=== PATIENT | male | born 1960 | race Caucasian/White ===

== ENCOUNTER 2018-08-17 19:52 | Inpatient (IN) | payer OTHER ==
[~2018-08-17] VITALS: Ht 172.7 cm; Wt 68.0 kg
[2018-08-17 19:54] VITALS: BP 132/87
--- NOTE | 2018-08-17 19:55 | NUR ---
58 YO M LUI FROM HOME D/T ABD PAIN. PT REPORTS 8/10 SHARP, PRESSURE-LIKE BILATERAL LOWER ABD PAIN X SINCE LAST NIGHT. PT HAS COLOSTOMY BAG TO RIGHT LOWER QUADRANT AND REPORTS THAT HE HASN'T HAD A FULL BOWEL MOVEMENT IN 2 DAYS. PT ADMITS TO OCCASIONALLY SMOKING METH AND REPORTS LAST USE WAS 4-5 DAYS AGO. SMOKES CIGARETTES. DENIES OTHER REC DRUG USE. -- COLOSTOMY BAG APPEARS TO HAVE SMALL AMOUNT OF BROWN LIQUID STOOL. ABD IS FIRM AND MILD DISTENTION NOTED TO LRQ. BOWEL SOUNDS ACTIVE TO LLQ, ULQ, HYPOACTIVE TO LRQ. -- PT ALSO HAS UROSTOMY BAG. DENIES ANY ISSUES WITH URINIATION. -- PT APPEARS UNCOMFORTABLE, IN PAIN. IS COOPERATIVE, ANSWERS QUESTIONS APPROPRIATELY, BEHAVIOR AGE APPROPRIATE. -- PT HAS POOR HYGIENE AND APPEARS DISHEVELED. -- SKIN PINK, WARM, DRY. BREATHING EVEN, UNLABORED. 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 WAS NOT EFFECTIVE. NO STOOL REPORTED.
[2018-08-17 20:30] LABS: BASOPHILS % (AUTO) 0.1 % (0.0-2.0); EOSINOPHILS % (AUTO) 0.4 % (0.0-4.0); HEMATOCRIT 40.5 % (36-52); HEMOGLOBIN 13.7 g/dL (12.0-18.0); LYMPHOCYTES # (AUTO) 0.6 K/uL (2.0-11.5); LYMPHOCYTES % (AUTO) 7.4 % (20.5-51.1); MEAN CORPUSCULAR HEMOGLOBIN 29 pg (27-31); MEAN CORPUSCULAR HGB CONC 34 g/dL (33-37); MEAN CORPUSCULAR VOLUME 84.9 fL (80-94); MONOCYTES # (AUTO) 0.6 K/uL (0.8-1.0); MONOCYTES % (AUTO) 7.3 % (1.7-9.3); NEUTROPHILS # (AUTO) 6.8 K/uL (1.8-7.7); NEUTROPHILS % (AUTO) 84.8 % (42.2-75.2); PLATELET COUNT (AUTO) 186 K/uL (140-450); RED BLOOD CELL COUNT(AUTO) 4.77 MIL/uL (4.20-6.10); RED CELL DISTRIBUTION WIDTH 14.7 % (11.6-13.7)
[2018-08-17 20:38] LABS: ANION GAP 10.5 (8-16); CARBON DIOXIDE 27.4 mmol/L (21-32); CREATININE 0.8 mg/dL (0.7-1.3); POTASSIUM 3.9 mmol/L (3.5-5.1)
[2018-08-17 20:44] LABS: ALBUMIN 3.4 g/dL (3.4-5.0); TOTAL BILIRUBIN 0.7 mg/dL (0.0-1.0)
--- NOTE | 2018-08-17 20:44 | NUR ---
PT TAKEN TO CT AT THIS TIME
--- NOTE | 2018-08-17 21:50 | NUR ---
CT REPORT: Findings- Right lower quadrant ostomy with sub-ostomy 10 x 4 cm hernia of large bowel. Approximately 6.0 cm AP diameter x 5.5 cm transverse rim-enhancing fluid collection surrounding by calcifications as well as surgical clips in the lower midline pelvis, which could represent postsurgical abscess. Clinical correlation is needed as to the type of surgery that was done in the pelvis. No bowel obstruction. Moderate to severe left hydroureteronephrosis due to obstruction at level of the pelvis possibly at the level of pelvic abscess. There appears to be a cystectomy. No right hydronephrosis or right renal calculus. Distended gallbladder containing couple 1 cm calcified gallstones in gallbladder neck region. Liver is unremarkable on this limited noncontrast study. No splenomegaly. Pancreas is not enlarged. No right or left adrenal mass. There is no abdominal aortic aneurysm. NOTE: Please note that evaluation of solid organs and subtle acute disease is limited without IV contrast material. Impression: 1. Right lower quadrant ostomy with sub-ostomy 10 x 4 cm hernia of large bowel. Approximately 6.0 cm AP diameter x 5.5 cm transverse rim-enhancing fluid collection surrounding by calcifications as well as surgical clips in the lower midline pelvis, which could represent postsurgical abscess. Clinical correlation is needed as to the type of surgery that was done in the pelvis. No bowel obstruction. 2. Moderate to severe left hydroureteronephrosis due to obstruction at level of the pelvis possibly at the level of pelvic abscess. There appears to be a cystectomy. 3. Distended gallbladder containing couple 1 cm calcified gallstones in gallbladder neck region.
--- NOTE | 2018-08-17 23:15 | NUR ---
DR. GALLARDO BEDSIDE EVALUATING PT
[2018-08-17] MEDS ORDERED: MORPHINE SULFATE 4 MG/ML SYR IVP ONE (23:30)
--- NOTE | 2018-08-17 23:42 | NUR ---
LAB AT BEDSIDE DRAWING BLOOD CX.
[2018-08-17] MEDS ORDERED: cefTRIAXone 1,000 MG VIAL ONE (23:44)
--- NOTE | 2018-08-17 23:45 | NUR ---
PT RECEIVED 4 MG MORPHINE IVP FOR 9/10 PAIN. WILL CONTINUE TO MONITOR.
[2018-08-17] MEDS ORDERED: ONDANSETRON 4 MG/2 ML VIAL IVP PRN (23:50)
[2018-08-17] MEDS ORDERED: HYDROcodone/APAP 5/325 MG 1 TAB TAB PO PRN (23:50)
[2018-08-17] MEDS ORDERED: ACETAMINOPHEN 325 MG TAB PO PRN (23:50)
--- NOTE | 2018-08-18 00:30 | NUR ---
PT IS SLEEPING. REPORTS 5/10 PAIN. MORPHINE EFFECTIVE.
--- NOTE | 2018-08-18 00:50 | NUR ---
RECEIVED BEDSIDE REPORT FROM ER NURSE LEAH. A/O X4. OCCITAN SPEAKING. ABLE TO MAKE NEEDS KNOWN. SKIN INTACT. COLOSTOMY IN PLACE. TENDER/DISTENDED. UROSTOMY IN PLACE. REQUESTED URINAL AT BEDSIDE TO EMPTY OUT URINE FROM UROSTOMY BAG. IV SITE PATENT AND INTACT. 22G IN LFA. BED IN LOW POSITION. CALL LIGHT WITHIN REACH. WILL CONTINUE TO MONITOR.
--- NOTE | 2018-08-18 00:56 | NUR ---
Patient will be admitted to care of Dr. Marin. Admited to MS. Will go to room 105-B. Belongings list completed. Report to LAURO Thompson.
--- NOTE | 2018-08-18 02:30 | NUR ---
PT SLEEPING IN BED. NO SIGNS OF DISTRESS OR DISCOMFORT. BED IN LOW POSITION. CALL LIGHT WITHIN REACH. WILL CONTINUE TO MONITOR.
[2018-08-18 04:00] VITALS: BP 122/69
--- NOTE | 2018-08-18 04:30 | NUR ---
ADMINISTERED ZOSYN IVPB SCHEDULED. EDUCATED ON SIDE EFFECTS. VERBALIZED UNDERSTANDING. WILL CONTINUE TO MONITOR.
[2018-08-18] MEDS ORDERED: PIPERACILLIN/TAZOBACTAM 3.375 GM VIAL IV ONE (04:38)
[2018-08-18] MEDS ORDERED: PIPERACILLIN/TAZOBACTAM 3.375 GM in DEXTROSE 5% 50 ML IV SCH (05:00)
[2018-08-18] MEDS: HYDROmorphone 1 MG/ML AMP IVP PRN ×3 (05:43→20:35)
--- NOTE | 2018-08-18 05:43 | NUR ---
ADMINISTERED PRN PAIN MED. EDUCATED ON SIDE EFFECTS. VERBALIZED UNDERSTANDING. TOLERATED WELL. WILL CONTINUE TO MONITOR.
[2018-08-18 06:43] LABS: BASOPHILS % (AUTO) 0.1 % (0.0-2.0); EOSINOPHILS % (AUTO) 0.2 % (0.0-4.0); HEMATOCRIT 40.1 % (36-52); HEMOGLOBIN 13.6 g/dL (12.0-18.0); LYMPHOCYTES # (AUTO) 0.4 K/uL (2.0-11.5); LYMPHOCYTES % (AUTO) 4.5 % (20.5-51.1); MEAN CORPUSCULAR HEMOGLOBIN 29 pg (27-31); MEAN CORPUSCULAR HGB CONC 34 g/dL (33-37); MEAN CORPUSCULAR VOLUME 84.8 fL (80-94); MONOCYTES # (AUTO) 0.7 K/uL (0.8-1.0); MONOCYTES % (AUTO) 8.1 % (1.7-9.3); NEUTROPHILS # (AUTO) 7.8 K/uL (1.8-7.7); NEUTROPHILS % (AUTO) 87.1 % (42.2-75.2); PLATELET COUNT (AUTO) 173 K/uL (140-450); RED BLOOD CELL COUNT(AUTO) 4.73 MIL/uL (4.20-6.10); RED CELL DISTRIBUTION WIDTH 14.5 % (11.6-13.7)
--- NOTE | 2018-08-18 07:20 | NUR ---
ENDORSED PT TO DAYSHIFT LAURO ANDRES. PT IN STABLE CONDITION.
--- NOTE | 2018-08-18 07:25 | NUR ---
RECEIVED HAND OFF REPORT FROM COLUMN PRECASTER NURSE PT IS ASLEEP IN BED NOTABLE CHEST RISE AND FALL PT APPEARS STABLE AND IN NO APPARENT DISTRESS. ALL SAFETY MEASURES ARE IN PLACE WILL CONTINUE TO MONITOR.
--- NOTE | 2018-08-18 09:05 | NUR ---
FREQUENT ROUNDING ON PT PT IS STABLE AND IN NO APPARENT DISTRESS. ALL SAFETY MEASURES ARE IN PLACE. WILL CONTINUE TO MONITOR.
[2018-08-18] MEDS: ENOXAPARIN 30 MG/0.3 ML SYR SUBQ SCH (10:13)
--- NOTE | 2018-08-18 11:25 | NUR ---
FREQUENT ROUNDING ON PT PT IS STABLE AND IN NO APPARENT DISTRESS, ALL SAFETY MEASURES ARE IN PLACE. WILL CONTINUE TO MONITOR.
--- NOTE | 2018-08-18 12:46 | NUR ---
PATIENT HAS BEEN SCREENED AND CATEGORIZED MODERATE NUTRITION RISK. PATIENT WILL BE SEEN WITHIN 3-5 DAYS OF ADMISSION. 08/20/18JUAN NOVA MBA, RD
[2018-08-18] MEDS ORDERED: LACTULOSE 20 GM/30 ML UDC PO PRN (12:50)
--- NOTE | 2018-08-18 13:00 | NUR ---
STARTED 18G IV IN RIGHT AC PER REQUEST OF RADIOLOGIST FOR IV CONTRAST
--- NOTE | 2018-08-18 13:35 | NUR ---
RECEIVED PO CONTRAST FOR PT AND ADMINISTERED PER INSTRUCTIONS FROM RADIOLOGIST.
[2018-08-18 13:41] LABS: PROTHROMBIN TIME 9.3 secs (10.8-13.4)
--- NOTE | 2018-08-18 13:45 | NUR ---
FREQUENT ROUNDING PT IS ASLEEP NOTABLE CHEST RISE AND FALL. PT APPEARS STABLE AND IN NO APPARENT DISTRESS. ALL SAFETY MEASURES ARE IN PLACE WILL CONTINUE TO MONITOR.
[2018-08-18] MEDS: PIPER/TAZO 3.375GM/D5W PREMIX 50 ML IV SCH ×2 (14:42→20:34)
[2018-08-18] MEDS: NICOTINE TRANSD SYS 14 MG/24 HR PATCH TD SCH (14:42)
--- NOTE | 2018-08-18 15:25 | NUR ---
FREQUENT ROUNDING PT IS AWAKE IN BED PT IS STABLE AND IN NO APPARENT DISTRESS. ALL SAFETY MEASURES ARE IN PLACE. WILL CONTINUE TO MONITOR.
--- NOTE | 2018-08-18 15:45 | NUR ---
PT FINISHED PO CONTRAST PER INSTRUCTED BY THE RADIOLOGIST.
[2018-08-18 16:05] VITALS: BP 124/66
--- NOTE | 2018-08-18 17:35 | NUR ---
FREQUENT ROUNDING ON PT PT IS STABLE AND IN NO APPARENT DISTRESS, ALL SAFETY MEASURES ARE IN PLACE. WILL CONTINUE TO MONITOR.
--- NOTE | 2018-08-18 18:45 | NUR ---
RADIOLOGY CALLED AND STATED THEY WILL COME AROUND 1900 TO TAKE PT TO CT SCAN
--- NOTE | 2018-08-18 19:35 | NUR ---
ENDORSE PT TO HUMAN RESOURCES MGR NURSE PT IS IN BED. PT IS STABLE AND IN NO APPARENT DISTRESS. ALL SAFETY MEASURES ARE IN PLACE.
--- NOTE | 2018-08-18 19:36 | NUR ---
RECEIVED REPORT FROM DAY SHIFT RNMCKENNA. PATIENT SLEEPING WITH NO SIGNS OF DISTRESS ON RA. SAFETY PRECAUTIONS IN PLACE.
--- NOTE | 2018-08-18 23:30 | NUR ---
PATIENT C/O SEVERE ABDOMINAL PAIN. MEDICATED WITH PRN DILAUDID. VITALS STABLE. SAFETY PRECAUTIONS IN PLACE. WILL CONTINUE TO MONITOR.
[2018-08-19] VITALS: BP 131/67
[2018-08-19] MEDS: HYDROmorphone 1 MG/ML AMP IVP PRN ×3 (00:47→13:31)
--- NOTE | 2018-08-19 00:50 | NUR ---
PATIENT C/O CONTINUED SEVERE ABD PAIN. MEDICATED WITH PRN DILAUDID. VITALS REMAIN STABLE ON RA. SAFETY PRECAUTIONS IN PLACE. WILL CONTINUE TO MONITOR.
--- NOTE | 2018-08-19 02:00 | NUR ---
PATIENT SLEEPING, NO SIGNS OF DISTRESS ON RA. WILL CONTINUE TO MONITOR.
[2018-08-19] MEDS: PIPER/TAZO 3.375GM/D5W PREMIX 50 ML IV SCH ×3 (05:25→21:06)
--- NOTE | 2018-08-19 05:28 | NUR ---
ADMINISTERED SCHEDULED MEDICATIONS. PATIENT TOLERATED WELL, ASLEEP BUT WAKES EASILY. NO SIGNS OF DISTRESS ON RA. SAFETY PRECAUTIONS IN PLACE
[2018-08-19 07:21] LABS: BASOPHILS % (AUTO) 0.1 % (0.0-2.0); EOSINOPHILS % (AUTO) 0.1 % (0.0-4.0); HEMATOCRIT 41.4 % (36-52); HEMOGLOBIN 14.1 g/dL (12.0-18.0); LYMPHOCYTES # (AUTO) 0.5 K/uL (2.0-11.5); MEAN CORPUSCULAR HEMOGLOBIN 29 pg (27-31); MEAN CORPUSCULAR HGB CONC 34 g/dL (33-37); MEAN CORPUSCULAR VOLUME 85.6 fL (80-94); MONOCYTES # (AUTO) 0.8 K/uL (0.8-1.0); MONOCYTES % (AUTO) 9.1 % (1.7-9.3); NEUTROPHILS # (AUTO) 7.7 K/uL (1.8-7.7); PLATELET COUNT (AUTO) 184 K/uL (140-450); RED BLOOD CELL COUNT(AUTO) 4.84 MIL/uL (4.20-6.10); RED CELL DISTRIBUTION WIDTH 14.9 % (11.6-13.7); WHITE BLOOD COUNT (AUTO) 9.1 K/uL (4.8-10.8)
--- NOTE | 2018-08-19 07:27 | NUR ---
GAVE BEDSIDE REPORT TO DAY SHIFT RNMCKENNA. PATIENT IS STABLE, SLEEPING WITH BED IN LOW POSITION, NO SIGNS OF DISTRESS ON RA.
--- NOTE | 2018-08-19 07:35 | NUR ---
RECEIVED HAND OFF REPORT AT PT BEDSIDE. PT IS ASLEEP WITH NOTABLE CHEST RISE AND FALL. PT IS STABLE AND IN NO APPARENT DISTRESS. ALL SAFETY MEASURSE
[2018-08-19 07:39] LABS: MAGNESIUM 2.3 mg/dL (1.8-2.4); PHOSPHORUS 2.8 mg/dL (2.5-4.9)
[2018-08-19 07:42] LABS: ANION GAP 12.9 (8-16); CARBON DIOXIDE 27.2 mmol/L (21-32); POTASSIUM 4.1 mmol/L (3.5-5.1)
[2018-08-19 07:43] LABS: CREATININE 1.1 mg/dL (0.7-1.3)
[2018-08-19 08:00] VITALS: BP 130/68
[2018-08-19 08:03] LABS: LYMPHOCYTES % (AUTO) 5.8 % (20.5-51.1); NEUTROPHILS % (AUTO) 84.9 % (42.2-75.2)
[2018-08-19] MEDS: ENOXAPARIN 30 MG/0.3 ML SYR SUBQ SCH (08:56)
--- NOTE | 2018-08-19 09:25 | NUR ---
FREQUENT ROUNDING PT IS AWAKE IN BED PT IS STABLE AND IN NO APPARENT DISTRESS. ALL SAFETY MEASURES ARE IN PLACE. WILL CONTINUE TO MONITOR.
--- NOTE | 2018-08-19 11:53 | NUR ---
FREQUENT ROUNDING PT IS ASLEEP IN BED NOTABLE CHEST RISE AND FALL. PT APPEARS STABLE AND IN NO APPARENT DISTRESS. ALL SAFETY MEASURES ARE IN PLACE, WILL CONTINUE TO MONITOR.
--- NOTE | 2018-08-19 13:05 | NUR ---
FREQUENT ROUNDING PT IS AWAKE IN BED PT IS STABLE AND IN NO APPARENT DISTRESS, ALL SAFETY MEASURES ARE IN PLACE WILL CONTINUE TO MONITOR.
[2018-08-19] MEDS: NICOTINE TRANSD SYS 14 MG/24 HR PATCH TD SCH (13:44)
[2018-08-19] MEDS ORDERED: HYDROcodone/APAP 10/325 MG 1 TAB TAB PO PRN (13:55)
[2018-08-19] MEDS ORDERED: HYDROmorphone PFS 2 MG/ML SYR IVP PRN (13:55)
--- NOTE | 2018-08-19 15:25 | NUR ---
FREQUENT ROUNDING PT IS AWAKE IN BED PT IS STABLE AND APPEARS IN NO APPARENT DISTRESS. ALL SAFETY MEASURES ARE IN PLACE WILL CONTINUE TO MONITOR.
[2018-08-19 16:02] VITALS: BP 129/74
--- NOTE | 2018-08-19 16:40 | NUR ---
PT STATES HIS SURGERY WAS DONE IN 2011 AT [facility] BY DR PINTO.
--- NOTE | 2018-08-19 16:45 | NUR ---
CALLED [facility] , SPOKE WITH TREATING ENGINEER FRANCIS, THEY CURRENTLY DON'T HAVE A BED AVAILABLE BUT WILL REVIEW THE CASE, WILL FAX REQUESTED INFO TO .
--- NOTE | 2018-08-19 17:08 | NUR ---
FREQUENT ROUNDING PT IS STABLE AND IN NO APPARENT DISTRESS. ALL SAFETY MEASURES ARE IN PLACE. IVF IS INFUSING IV SITE SHOWS NO SIGNS OF INFILTRATION OR INFLAMMATION. CONTAINER AT BEDSIDE PER PT REQUEST INCASE HE HAS A BOWEL MOVEMENT FROM HIS COLOSTOMY SINCE HE RECEIVED LACTULOSE.
[2018-08-19] MEDS: HYDROmorphone PFS 2 MG/ML SYR IVP PRN ×2 (17:30→21:06)
--- NOTE | 2018-08-19 19:25 | NUR ---
RECEIVED BEDSIDE REPORT FROM DAY SHIFT NURSE. PATIENT IS AWAKE, ALERT, AND COOPERATIVE. RESPIRATION EVEN UNLABORED ON ROOM AIR. SKIN IS WARM AND DRY. IV PATENT AND INTACT. COLOSTOMY BAG AND UROSTOMY NOTED. PATIENT IS AMBULATORY AND ABLE TO MAKE NEEDS KNOWN. PLAN OF CARE WAS DISCUSSED. BED IS AT LOW POSITION. CALL LIGHT WITHIN REACH AND VERBALIZES ITS USE. WILL CONTINUE TO MONITOR.
--- NOTE | 2018-08-19 19:37 | NUR ---
ENDORSED PT TO BOOKER NURSE PT IS ASLEEP IN BED NOTABLE CHEST RISE AND FALL. ALL SAFETY MEASURES ARE IN PLACE.
--- NOTE | 2018-08-19 20:00 | NUR ---
INITIAL ASSESSMENT DONE. VITALS WERE TAKEN. PATIENT COLOSTOMY BAG AND UROSTOMY INTACT AND IN PLACE. DENIES PAIN. WILL CONTINUE TO MONITOR.
--- NOTE | 2018-08-19 21:00 | NUR ---
ALL SCHEDULED MEDS GIVEN PER ORDER. NO ASE NOTED. WILL CONTINUE TO MONITOR.
--- NOTE | 2018-08-19 21:06 | NUR ---
PATIENT COMPLAINED OF ABDOMINAL PAIN 11/03. PRN PAIN MED ADMINISTERED PER ORDER. WILL CONTINUE TO MONITOR.
--- NOTE | 2018-08-19 22:30 | NUR ---
PATIENT SLEEPING RESPIRATION EVEN UNLABORED ON ROOM AIR. NO DISTRESS NOTED. WILL CONTINUE TO MONITOR.
[2018-08-20] VITALS: BP 133/86
--- NOTE | 2018-08-20 | NUR ---
VITALS WERE TAKEN. PATIENT CONDITION STABLE. NO DISTRESS NOTED. WILL CONTINUE TO MONITOR
--- NOTE | 2018-08-20 01:35 | NUR ---
PATIENT COMPLAINED OF ABDOMINAL PAIN 8. PRN PAIN MEDS ADMINISTER PER ORDER. WILL CONTINUE TO MONITOR.
[2018-08-20] MEDS: HYDROmorphone PFS 2 MG/ML SYR IVP PRN ×3 (01:37→09:47)
--- NOTE | 2018-08-20 04:00 | NUR ---
CHECKED ON PATIENT. PATIENT IS ASLEEP RESPIRATION EVEN UNLABORED ON ROOM AIR. NO DISTRESS NOTED. WILL CONTINUE TO MONITOR
[2018-08-20] MEDS: PIPER/TAZO 3.375GM/D5W PREMIX 50 ML IV SCH (05:06)
[2018-08-20] MEDS ORDERED: PIPERACILLIN/TAZOBACTAM 2.25 GM VIAL IV ONE (05:23)
--- NOTE | 2018-08-20 05:40 | NUR ---
PATIENT COMPLAINED OF ABDOMINAL PAIN 8/10 PRN PAIN MED ADMINISTER PER ORDER. WILL CONTINUE TO MONITOR
--- NOTE | 2018-08-20 07:10 | NUR ---
BEDSIDE REPORT RECEIVED FROM ABRASIVE COATING MACHINE OPERATOR NURSE, PT IS ASLEEP. NO S/S OF ANY ACUTE DISTRESS OR SOB NOTED. PT IS ON ROOM AIR, SKIN INTACT ASIDE FROM THE COLOSTOMY AND UROSTOMY BAGS. TWO IV SITES NOTED ON THE L FA 22 G, AND R AC 18 G, SALINE LOCKED. PT IS AMBULATORY, ON A REGULAR DIET. CALL LIGHT WITHIN REACH. WILL CONTINUE TO MONITOR.
[2018-08-20 07:19] LABS: BASOPHILS % (AUTO) 0.1 % (0.0-2.0); EOSINOPHILS % (AUTO) 0.7 % (0.0-4.0); HEMATOCRIT 44.2 % (36-52); LYMPHOCYTES # (AUTO) 0.7 K/uL (2.0-11.5); LYMPHOCYTES % (AUTO) 10.6 % (20.5-51.1); MEAN CORPUSCULAR HEMOGLOBIN 29 pg (27-31); MEAN CORPUSCULAR HGB CONC 34 g/dL (33-37); MEAN CORPUSCULAR VOLUME 85.8 fL (80-94); MONOCYTES # (AUTO) 0.6 K/uL (0.8-1.0); MONOCYTES % (AUTO) 9.5 % (1.7-9.3); NEUTROPHILS # (AUTO) 5.2 K/uL (1.8-7.7); NEUTROPHILS % (AUTO) 79.1 % (42.2-75.2); PLATELET COUNT (AUTO) 214 K/uL (140-450); RED BLOOD CELL COUNT(AUTO) 5.14 MIL/uL (4.20-6.10); RED CELL DISTRIBUTION WIDTH 14.8 % (11.6-13.7); WHITE BLOOD COUNT (AUTO) 6.6 K/uL (4.8-10.8)
--- NOTE | 2018-08-20 07:20 | NUR ---
ENDORSED PATIENT TO DAY SHIFT NURSE FOR CONTINUITY OF CARE. PATIENT IS STABLE AT THIS TIME.
[2018-08-20 07:31] LABS: MAGNESIUM 2.2 mg/dL (1.8-2.4); PHOSPHORUS 3.1 mg/dL (2.5-4.9)
[2018-08-20 07:38] LABS: ANION GAP 12.9 (8-16); CARBON DIOXIDE 29.2 mmol/L (21-32); CREATININE 1.1 mg/dL (0.7-1.3); POTASSIUM 4.1 mmol/L (3.5-5.1)
[2018-08-20 08:00] VITALS: BP 136/77
[2018-08-20] MEDS: ENOXAPARIN 30 MG/0.3 ML SYR SUBQ SCH (09:40)
--- NOTE | 2018-08-20 09:55 | NUR ---
SCHEDULED LOVENOX ADMINISTERED. PT C/O 8/ ABD PAIN, PRN DILAUDID ADMINISTERED, WILL CONTINUE TO MONITOR.
--- NOTE | 2018-08-20 11:00 | NUR ---
PT SEEN BY DR CHAMPAGNE. PT STATES THAT HE DOES NOT WANT TO STAY AT [facility], AND DOES NOT WANT TO WAIT FOR TRANSFER TO [facility], HE SAYS CAN MAKE IT THERE HIMSELF. DR CHAMPAGNE IS PLACING A DISCHARGE ORDER FOR THE PT AT THIS TIME.
[2018-08-20] MEDS ORDERED: LACT10SO11 PO (11:04)
[2018-08-20] MEDS ORDERED: NORC10 PO (11:04)
[2018-08-20] MEDS ORDERED: AMOX1TAB8 PO (11:04)
--- NOTE | 2018-08-20 12:00 | NUR ---
PT HAS DISCHARGED. PT WAS GIVEN DC INSTRUCTIONS TO WHICH HE VERBALIZED UNDERSTANDING. IV SITES AND WRIST BAND WERE REMOVED. PT LEFT WITH ALL HIS BELONGINGS IN STABLE CONDITION.
== END 2018-08-20 12:00 | disposition home or self-care (01) | DRG 721 ==
LOC: MED 19:52 → MTU 23:59
PROVIDERS: ADMIT Internal Medicine Pulmonary Disease; ATTEND Internal Medicine Pulmonary Disease
DX: T81.43XA Infection following a procedure, organ and space surgical site, initial encounter (principal); K65.1 Peritoneal abscess; N13.30 Unspecified hydronephrosis; R18.8 Other ascites; Z93.6 Other artificial openings of urinary tract status; F17.210 Nicotine dependence, cigarettes, uncomplicated; K82.8 Other specified diseases of gallbladder; K59.00 Constipation, unspecified; K80.20 Calculus of gallbladder without cholecystitis without obstruction; K43.5 Parastomal hernia without obstruction or gangrene; Z93.3 Colostomy status; Z85.038 Personal history of other malignant neoplasm of large intestine; Z90.49 Acquired absence of other specified parts of digestive tract
CPT/HCPCS: 36415; 76705; 80048; 80053; 83690; 83735; 84100; 85025; 85610; 87040; 87081; 87086; 87186; 96365; 96375; 99285; J0696; J1170; J1650; J2270; J2543; J7030; J7060; Q0092; Q9967

== ENCOUNTER 2019-01-23 07:42 | Emergency (ER) | payer OTHER ==
[~2019-01-23] VITALS: Ht 170.2 cm; Wt 65.3 kg
[~2019-01-23 07:42] MED LIST: AMOX1TAB8 PO; LACT10SO11 PO; NORC10 PO
[2019-01-23 07:47] VITALS: BP 111/66
--- NOTE | 2019-01-23 07:51 | NUR ---
PT AMB TO BED 8 WITH STEADY GAIT
--- NOTE | 2019-01-23 08:03 | NUR ---
59/M C/O RT UPPER LEG PAIN X YESTERDAY. PAIN 5/10. RASH NOTED TO RT UPPER INNER THIGH WITH WARMTH AND MILD SWELLING. PT CONCERNED FOR CELLULITIS. ALSO STATES THERE IS FLUID "DRAINING FROM MY BUTT THAT HAS BEEN MORE CLOUDY THAN USUAL". DENIES FLUID SITTING AT AFFECTED SKIN AREA. PMH-UROSTOMY, COLOSTOMY
--- NOTE | 2019-01-23 08:04 | NUR ---
Patient being evaluated by DR ALMEIDA at bedside.
[2019-01-23] MEDS ORDERED: NACL 0.9% 1,000 ML IV SCH (08:11)
[2019-01-23] MEDS ORDERED: KETOROLAC 30 MG/ML VIAL IVP ONE (08:15)
--- NOTE | 2019-01-23 08:18 | NUR ---
REVENUE AGENT AT BEDSIDE.
[2019-01-23 08:33] LABS: BASOPHILS % (AUTO) 0.2 % (0.0-2.0); EOSINOPHILS % (AUTO) 0.1 % (0.0-4.0); HEMATOCRIT 40.1 % (36-52); HEMOGLOBIN 13.6 g/dL (12.0-18.0); LYMPHOCYTES # (AUTO) 0.3 K/uL (2.0-11.5); LYMPHOCYTES % (AUTO) 4.5 % (20.5-51.1); MEAN CORPUSCULAR HEMOGLOBIN 30 pg (27-31); MEAN CORPUSCULAR HGB CONC 34 g/dL (33-37); MEAN CORPUSCULAR VOLUME 88.1 fL (80-94); MONOCYTES # (AUTO) 0.9 K/uL (0.8-1.0); MONOCYTES % (AUTO) 14.3 % (1.7-9.3); NEUTROPHILS # (AUTO) 5.2 K/uL (1.8-7.7); NEUTROPHILS % (AUTO) 80.9 % (42.2-75.2); PLATELET COUNT (AUTO) 191 K/uL (140-450); RED BLOOD CELL COUNT(AUTO) 4.55 MIL/uL (4.20-6.10); RED CELL DISTRIBUTION WIDTH 13.5 % (11.6-13.7); WHITE BLOOD COUNT (AUTO) 6.5 K/uL (4.8-10.8)
[2019-01-23 09:22] LABS: POTASSIUM 4.1 mmol/L (3.5-5.1)
[2019-01-23 09:23] LABS: ANION GAP 14.8 (8-16); CARBON DIOXIDE 27.3 mmol/L (21-32); CREATININE 1.3 mg/dL (0.7-1.3)
[2019-01-23] MEDS ORDERED: cefTRIAXone 1,000 MG VIAL ONE (10:04)
--- NOTE | 2019-01-23 10:39 | NUR ---
DR. ALMEIDA SPEAKING WITH PATIENT AT BEDSIDE.
[2019-01-23 11:25] VITALS: BP 120/63
== END 2019-01-23 11:25 | disposition home or self-care (01) ==
LOC: MED 07:42
DX: M79.89 Other specified soft tissue disorders (principal); F17.200 Nicotine dependence, unspecified, uncomplicated; Z98.890 Other specified postprocedural states; Z85.038 Personal history of other malignant neoplasm of large intestine; Z79.899 Other long term (current) drug therapy
CPT/HCPCS: 36415; 80048; 83605; 85025; 85651; 86140; 87040; 96365; 96375; 99283; J0696; J1885; J7060

== ENCOUNTER 2020-01-09 17:30 | Emergency (ER) | payer OTHER ==
[~2020-01-09] VITALS: Ht 175.3 cm; Wt 68.0 kg
[2020-01-09 17:35] VITALS: BP 123/71
--- NOTE | 2020-01-09 17:35 | NUR ---
58 Y/O MALE BIBA FROM [facility], WITH C/O LEFT FLANK PAIN X1 DAY. 9/10 PAIN. PT STATES PMH OF LOW FUNCTIONING LEFT KIDNEY. HE ALSO HAS A UROSTOMY BAG, AND COLOSTOMY SINCE 2010. PT DESCRIBES PAIN CONSTANT, STABBING, AND SHARP. PT DENIES INJURY/TRAUMA TO AREA, N/V/D, COUGH, SOB, FEVER, CHILLS. PT IS A&OX4, VSS, R/R EQUAL, AND UNLABORED. SIDE RAIL X1, BED IN LOW POSITION, WILL CONTINUE TO MONITOR. NKDA PMH: COLON CANCER, LOW FUNCTIONING LEFT KIDNEY, UROSOTOMY, COLOSTOMY,
[2020-01-09] MEDS ORDERED: KETOROLAC 30 MG/ML VIAL IM ONE (18:15)
[2020-01-09] MEDS ORDERED: HYDROcodone/APAP 5/325 MG 1 TAB TAB PO ONE (18:15)
[2020-01-09 18:34] LABS: BASOPHILS % (AUTO) 0.5 % (0.0-2.0); EOSINOPHILS % (AUTO) 0.4 % (0.0-4.0); HEMATOCRIT 37.3 % (36-52); HEMOGLOBIN 12.6 g/dL (12.0-18.0); LYMPHOCYTES # (AUTO) 0.5 K/uL (2.0-11.5); MEAN CORPUSCULAR HEMOGLOBIN 30 pg (27-31); MEAN CORPUSCULAR HGB CONC 34 g/dL (33-37); MEAN CORPUSCULAR VOLUME 88.6 fL (80-94); MONOCYTES # (AUTO) 0.6 K/uL (0.8-1.0); MONOCYTES % (AUTO) 9.3 % (1.7-9.3); NEUTROPHILS # (AUTO) 5.7 K/uL (1.8-7.7); NEUTROPHILS % (AUTO) 82.8 % (42.2-75.2); PLATELET COUNT (AUTO) 213 K/uL (140-450); WHITE BLOOD COUNT (AUTO) 6.8 K/uL (4.8-10.8)
[2020-01-09 18:45] LABS: ALBUMIN 3.3 g/dL (3.4-5.0); ANION GAP 12.9 (8-16); CARBON DIOXIDE 26.5 mmol/L (21-32); CREATININE 0.8 mg/dL (0.6-1.3); POTASSIUM 3.4 mmol/L (3.5-5.1); TOTAL BILIRUBIN 0.7 mg/dL (0.0-1.0)
--- NOTE | 2020-01-09 19:17 | NUR ---
RECEVIED REPORT FROM LAURO MACIEL FOR CONTINUITY OF CARE.
[2020-01-09 19:51] LABS: APPEARANCE,URINE CLOUDY (CLEAR); BILIRUBIN,URINE 1+ (NEGATIVE); BLOOD, URINE TRACE-I (NEGATIVE); COLOR,URINE YELLOW (YELLOW); LEUKOCYTE ESTERASE ,URINE 3+ (NEGATIVE); NITRITE, URINE NEGATIVE (NEGATIVE); PH,URINE 8.5 (5.0-9.0); UGLUCOSE NEGATIVE (NEGATIVE)
--- NOTE | 2020-01-09 20:05 | NUR ---
PT SLEEPING IN BED, HOB ELEVATED. RR EVEN AND UNLABORED. NO NEW CONCERNS AT THIS TIME. BED LOCKED AND IN LOWEST POSITION, SIDE RAIL UPX1. WILL CONTINUE TO MONITOR.
[2020-01-09 20:43] VITALS: BP 118/86
--- NOTE | 2020-01-09 20:44 | NUR ---
Patient discharged with v/s stable. Written and verbal after care instructions given and explained. Patient alert, oriented and verbalized understanding of instructions. Ambulatory with steady gait. All questions addressed prior to discharge. ID band removed. Patient advised to follow up with PMD. Rx of MOTRIN AND LEVAQUIN given. Patient educated on indication of medication including possible reaction and side effects. Opportunity to ask questions provided and answered.
== END 2020-01-09 20:47 | disposition home or self-care (01) ==
LOC: MED 17:30
DX: N39.0 Urinary tract infection, site not specified (principal); N13.30 Unspecified hydronephrosis
CPT/HCPCS: 36415; 74176; 80053; 81001; 85025; 87086; 96372; 99284; J1885

== ENCOUNTER 2020-03-24 20:48 | Emergency (ER) | payer OTHER ==
[~2020-03-24] VITALS: Ht 172.7 cm; Wt 68.0 kg
[2020-03-24 20:50] VITALS: BP 139/77
--- NOTE | 2020-03-24 20:53 | NUR ---
TO LOBBY A/W BED AMBULATORY
[2020-03-24 20:59] VITALS: BP 139/77
--- NOTE | 2020-03-24 21:00 | NUR ---
SEEN AND EXAMINED BY NADIR WITH ORDERS AND CARRIED OUT
--- NOTE | 2020-03-24 22:37 | NUR ---
PATIENT ELOPED FROM FACILITY. DISCHARGE INSTRUCTIONS NOT GIVEN TO PATIENT. DR. ZIMMERMAN NOTIFIED.
== END 2020-03-24 22:37 | disposition left against medical advice (07) ==
LOC: MED 20:48
DX: R10.9 Unspecified abdominal pain (principal); Z53.21 Procedure and treatment not carried out due to patient leaving prior to being seen by health care provider

== ENCOUNTER 2020-05-19 12:18 | Emergency (ER) | payer OTHER ==
[~2020-05-19] VITALS: Ht 172.7 cm; Wt 68.0 kg
[2020-05-19 12:22] VITALS: BP 127/69
[2020-05-19] MEDS ORDERED: BACITRACIN OINT 500 UNITS/GM PKT TP ONE (12:50)
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
[2020-05-19 13:09] VITALS: BP 127/69
--- NOTE | 2020-05-19 13:10 | NUR ---
Patient discharged with v/s stable. Written and verbal after care instructions given and explained. Patient alert, oriented and verbalized understanding of instructions. Ambulatory with steady gait. All questions addressed prior to discharge. ID band removed. Patient advised to follow up with PMD. Rx of BACITRACIN, CEPHALEXIN given. Patient educated on indication of medication including possible reaction and side effects. Opportunity to ask questions provided and answered.
--- NOTE | 2020-05-19 13:10 | NUR ---
APPLIED DRESSING TO RIGHT HAND AND FOOT WITHOUT ANY ISSUES
== END 2020-05-19 13:10 | disposition home or self-care (01) ==
LOC: MED 12:18
DX: T22.111A Burn of first degree of right forearm, initial encounter (principal); T25.121A Burn of first degree of right foot, initial encounter; F17.200 Nicotine dependence, unspecified, uncomplicated; F15.90 Other stimulant use, unspecified, uncomplicated; Z79.899 Other long term (current) drug therapy; Z85.9 Personal history of malignant neoplasm, unspecified; X08.8XXA Exposure to other specified smoke, fire and flames, initial encounter; Y93.89 Activity, other specified; Y92.89 Other specified places as the place of occurrence of the external cause; Y99.8 Other external cause status
CPT/HCPCS: 90471; 90715; 99283

== ENCOUNTER 2020-07-31 08:05 | Emergency (ER) | payer OTHER ==
[~2020-07-31] VITALS: Ht 172.7 cm; Wt 63.5 kg
[2020-07-31 08:05] VITALS: BP 124/62
--- NOTE | 2020-07-31 08:05 | NUR ---
59 y.o male BIBA for rectal bleeding. pt states having the rectal fluid come out 4-5x days ago. pt has colostomy and urostomy bag on the right side of the abdomen both intact and no redness. c/o pain 4/10 in the rectum stinging and burning. aaox4. rectum is red, warm to the touch, and is painful, no foul smell. PMH: colon cancer Allergies: nka
--- NOTE | 2020-07-31 08:07 | NUR ---
Pt taken to ER bed 7.
--- NOTE | 2020-07-31 08:07 | NUR ---
at bedside for examination
[2020-07-31] MEDS ORDERED: NACL 0.9% 1,000 ML IV ONE (08:10)
[2020-07-31 08:28] LABS: BASOPHILS % (AUTO) 0.6 % (0.0-2.0); EOSINOPHILS % (AUTO) 0.5 % (0.0-4.0); HEMATOCRIT 31.6 % (36-52); HEMOGLOBIN 10.5 g/dL (12.0-18.0); LYMPHOCYTES # (AUTO) 0.8 K/uL (2.0-11.5); LYMPHOCYTES % (AUTO) 14.3 % (20.5-51.1); MEAN CORPUSCULAR HEMOGLOBIN 27 pg (27-31); MEAN CORPUSCULAR HGB CONC 33 g/dL (33-37); MEAN CORPUSCULAR VOLUME 80.3 fL (80-94); MONOCYTES # (AUTO) 0.9 K/uL (0.8-1.0); MONOCYTES % (AUTO) 15.3 % (1.7-9.3); NEUTROPHILS % (AUTO) 69.3 % (42.2-75.2); PLATELET COUNT (AUTO) 362 K/uL (140-450); RED BLOOD CELL COUNT(AUTO) 3.94 MIL/uL (4.20-6.10); RED CELL DISTRIBUTION WIDTH 14.8 % (11.6-13.7); WHITE BLOOD COUNT (AUTO) 5.7 K/uL (4.8-10.8)
--- NOTE | 2020-07-31 08:36 | NUR ---
MD explained CT with IV contrast at bedside. Pt verified understanding. No further questions.
--- NOTE | 2020-07-31 08:37 | NUR ---
pt given blanket
[2020-07-31] MEDS ORDERED: KETOROLAC 30 MG/ML VIAL IVP ONE (08:40)
[2020-07-31 08:44] LABS: ALBUMIN 2.7 g/dL (3.4-5.0); ANION GAP 8.9 (8-16); CARBON DIOXIDE 30.8 mmol/L (21-32); CREATININE 1.2 mg/dL (0.6-1.3); POTASSIUM 3.7 mmol/L (3.5-5.1); TOTAL BILIRUBIN 0.4 mg/dL (0.0-1.0)
--- NOTE | 2020-07-31 09:07 | NUR ---
pt taken to CT via beatrice
--- NOTE | 2020-07-31 09:18 | NUR ---
Pt brought back from CT to ER bed 7.
--- NOTE | 2020-07-31 09:50 | NUR ---
Patient appears to be resting comfortably in bed. Vital Signs within normal limits. Respirations even and unlabored. Semi folwer's, bed down low, and disconnected IVF
--- NOTE | 2020-07-31 10:48 | NUR ---
[place] covid swab acquired, given to [facility] lab
--- NOTE | 2020-07-31 14:00 | NUR ---
Patient appears to be resting comfortably in bed. Vital Signs within normal limits. Respirations even and unlabored.
--- NOTE | 2020-07-31 16:29 | NUR ---
pt hungry but unable to tell if patient needs to have a surgical procedure, pt given ice chips and urinal to empy out urostomy bag.
[2020-07-31] MEDS ORDERED: ACETAMINOPHEN 325 MG TAB PO ONE (17:05)
--- NOTE | 2020-07-31 17:05 | NUR ---
MD notified about patient pain.
--- NOTE | 2020-07-31 17:56 | NUR ---
pt soaked the bed, patient changing and changing his urostomy bag.
--- NOTE | 2020-07-31 19:15 | NUR ---
report given to LAURO Acuña for continuation of care
--- NOTE | 2020-07-31 19:15 | NUR ---
report given to LAURO Acuña for continuation of care
--- NOTE | 2020-07-31 21:35 | NUR ---
[facility] HERE FOR TRANSPORT
--- NOTE | 2020-07-31 21:50 | NUR ---
TRANSFERED VIA [facility] TO [facility], CHART COPIED AND SENT, REPORT CALLED TO [facility]N
[2020-07-31 21:53] VITALS: BP 124/68
== END 2020-07-31 21:53 | disposition short-term general hospital (02) ==
LOC: MED 08:05
DX: K63.2 Fistula of intestine (principal); F17.210 Nicotine dependence, cigarettes, uncomplicated; F12.10 Cannabis abuse, uncomplicated; F15.10 Other stimulant abuse, uncomplicated; Z87.448 Personal history of other diseases of urinary system; Z85.9 Personal history of malignant neoplasm, unspecified
CPT/HCPCS: 36415; 74177; 80053; 85025; 87426; 96361; 96374; 99285; J1885; J7030; Q9967

== ENCOUNTER 2020-08-18 07:07 | Emergency (ER) | payer OTHER ==
[~2020-08-18] VITALS: Ht 177.8 cm; Wt 54.0 kg
--- NOTE | 2020-08-18 07:07 | NUR ---
PT BIBA BLS. TAKEN TO BED 9
[2020-08-18 07:09] VITALS: BP 106/63
[2020-08-18] MEDS ORDERED: NACL 0.9% 1,000 ML IV ONE (07:20)
--- NOTE | 2020-08-18 07:20 | NUR ---
59 Y/O MALE BIBA C/O ABD AND RECTUM PAIN X2 WEEKS. PT HAS COLOSTOMY AND UROSTOMY BAGS. PT STATES THAT HE HASNT HAD STOOL IN OSTOMY BAG X10 DAYS BUT IS PASSING GAS. PT ALSO HAS HAD FLUID/STOOL RUNNING FROM RECTUM X10 DAYS. PT STATES "I EAT AND IT JUST RUNS RIGHT THROUGH ME". PT STATES THAT HE WAS HERE EARLIER THIS MONTH AND WAS TRANSFERED TO [facility] AND NOTHING WAS DONE. PT DENIES FEVER/N/V. PT RECTUM IS RED AND IRRIATED WITH YELLOW FLAKES. ABD IS FLAT, SOFT, AND NONTENDER WITH ACTIVE BOWEL SOUNDS X4 QUADS. PT HAS HERNIA IN RLQ. PT RATES PAIN 7/10 THAT HE DESCRIBES BURNING. PT DENIES TAKING ANYTHING FOR PAIN. PT A/O X4 WITH EVEN AND UNLABORED RESPIRATIONS. PT IN GOWN, CONNECTED TO DEVELOPER TRADING SYSTEMS PMH: COLORECTAL CANCER, SMALL BOWEL FISTULA NKDA
--- NOTE | 2020-08-18 07:25 | NUR ---
DR UNDERWOOD AT BEDSIDE EVALUATING PT
[2020-08-18 07:38] LABS: BASOPHILS % (AUTO) 0.4 % (0.0-2.0); EOSINOPHILS % (AUTO) 0.6 % (0.0-4.0); HEMATOCRIT 27.6 % (36-52); HEMOGLOBIN 9.2 g/dL (12.0-18.0); LYMPHOCYTES # (AUTO) 0.7 K/uL (2.0-11.5); LYMPHOCYTES % (AUTO) 9.2 % (20.5-51.1); MEAN CORPUSCULAR HEMOGLOBIN 26 pg (27-31); MEAN CORPUSCULAR HGB CONC 33 g/dL (33-37); MEAN CORPUSCULAR VOLUME 78.2 fL (80-94); MONOCYTES # (AUTO) 1.2 K/uL (0.8-1.0); NEUTROPHILS # (AUTO) 5.2 K/uL (1.8-7.7); NEUTROPHILS % (AUTO) 72.8 % (42.2-75.2); PLATELET COUNT (AUTO) 331 K/uL (140-450); RED BLOOD CELL COUNT(AUTO) 3.52 MIL/uL (4.20-6.10); RED CELL DISTRIBUTION WIDTH 15.4 % (11.6-13.7); WHITE BLOOD COUNT (AUTO) 7.2 K/uL (4.8-10.8)
--- NOTE | 2020-08-18 07:49 | NUR ---
FLUID IS LEAKING FROM PTS RECTUM AND NOTHING FROM OSTOMY BAG. PT CLEANED, CHUCKS ON BED AND DIAPER PUT ON.
[2020-08-18] MEDS ORDERED: CLOTRIMAZOLE 1% 30 GM CRM TUBE TP STA (08:01)
[2020-08-18 08:16] LABS: ALBUMIN 2.1 g/dL (3.4-5.0); ANION GAP 11.6 (8-16); CARBON DIOXIDE 29.1 mmol/L (21-32); CREATININE 1.5 mg/dL (0.6-1.3); POTASSIUM 3.7 mmol/L (3.5-5.1); TOTAL BILIRUBIN 0.6 mg/dL (0.0-1.0)
--- NOTE | 2020-08-18 08:31 | NUR ---
URINE COLLECTED FROM PTS UROSTOMY BAG. SAMPLE WALKED TO LAB
--- NOTE | 2020-08-18 08:32 | NUR ---
PATIENT TAKEN TO CT VIA [facility]
[2020-08-18 08:41] LABS: BILIRUBIN,URINE 1+ (NEGATIVE); BLOOD, URINE TRACE-I (NEGATIVE); COLOR,URINE YELLOW (YELLOW); LEUKOCYTE ESTERASE ,URINE 3+ (NEGATIVE); NITRITE, URINE POSITIVE (NEGATIVE); UGLUCOSE NEGATIVE (NEGATIVE)
--- NOTE | 2020-08-18 08:44 | NUR ---
PT BACK FROM CT AND CONNECTED TO MONITOR AND FLUIDS
[2020-08-18 08:54] LABS: APPEARANCE,URINE HAZY (CLEAR)
[2020-08-18 08:55] LABS: RBC,URINE 0-5 /HPF (0-5); WBC,URINE TOO MANY TO COUNT /HPF (0-5)
[2020-08-18] MEDS ORDERED: CEPH-588 PO (09:32)
[2020-08-18] MEDS ORDERED: MIRABULK PO (09:32)
[2020-08-18] MEDS ORDERED: [UNRECOGNIZED DRUG - CODE] TP (09:32)
[2020-08-18] MEDS ORDERED: DOCU-299 PO (09:32)
[2020-08-18] MEDS ORDERED: cefTRIAXone 1,000 MG VIAL ONE (09:37)
[2020-08-18] MEDS ORDERED: POLYETHYLENE GLYCOL 17 GM/PKT PO ONE (09:45)
--- NOTE | 2020-08-18 09:45 | NUR ---
PT RESTING IN BED WITH EVEN AND UNLABORED RESPIRATIONS. BED IN LOWEST POSITION, BRAKES LOCKED, X1 SIDERAIL UP. WILL CONTINUE TO MONITOR
--- NOTE | 2020-08-18 10:42 | NUR ---
Patient discharged with v/s stable. Written and verbal after care instructions ON UTI, CONSTIPATION, AND JOCK ITCH given and explained. Patient alert, oriented and verbalized understanding of instructions. Ambulatory with steady gait. All questions addressed prior to discharge. ID band removed. Patient advised to follow up with PMD. Rx of CEPHALEXIN (KEFLEX), CLOTRIMAZOLE, DOCUSATE SODIUM (COLACE), AND POLYETHYLENE GLYCOL 3350 (MIRALAX) given. Patient educated on indication of medication including possible reaction and side effects. Opportunity to ask questions provided and answered.
--- NOTE | 2020-08-18 10:43 | NUR ---
Patient given written and verbal discharge instructions and verbalizes understanding. Given copies of tests performed during visit. Patient is awake, alert and oriented. Ambulatory with steady gait. Refuses offer of custodial placement. Given list of available shelters in surrounding areas. PT ALSO PROVIDED APPROPRIATE CLOTHES, FOOD, BUS PASS AND HOMELESS RESOURCES. PT SIGNED HOMELESS FORM.
[2020-08-18 11:06] VITALS: BP 106/63
== END 2020-08-18 10:43 | disposition home or self-care (01) ==
LOC: MED 07:07
DX: N39.0 Urinary tract infection, site not specified (principal); K59.00 Constipation, unspecified; K43.5 Parastomal hernia without obstruction or gangrene; B35.6 Tinea cruris; Z85.038 Personal history of other malignant neoplasm of large intestine
CPT/HCPCS: 36415; 74177; 80053; 81001; 83690; 85025; 87040; 87086; 96361; 96365; 99285; J0696; J7030; Q9967